=== PATIENT | female | born 1995 | race Caucasian/White ===

== ENCOUNTER 2016-12-03 04:57 | Inpatient (IN) | payer OTHER, SELFPAY ==
[2016-12-03] VITALS (28 sets, daily range): BP systolic 110–137; BP diastolic 62–89
[~2016-12-03] VITALS: Ht 162.6 cm; Wt 71.0 kg
[~2016-12-03 04:57] MED LIST: PRENTAB55 PO
[2016-12-03] MEDS ORDERED: LR 1,000 ML IV SCH ×2 (07:21→10:31)
[2016-12-03] MEDS ORDERED: LACTATED RINGER'S 1000 ML IV ONE (07:30)
--- NOTE | 2016-12-03 07:48 | HPE ---
DATE OF ADMISSION: 12/03/2016 21-year-old 1, para 0, LMP 07/22/2017, EDC 11/26/2016 at 41 weeks of gestation in spontaneous labor. She is booked for induction of labor today but came in in active labor. Labs are A negative, HIV negative, RPR negative, Hep negative, rubella immune. Varicella immune. Pap normal. Urine negative. Gonorrhea, chlamydia negative. 1-hour glucose 117. Group B Streptococcus (GBS) negative. Blood pressure 110/71, respirations 16, pulse 75, temperature is 99.1. Urine is 1.010, pH 5, negative, negative, negative. She seems to be in distress. Symphysis fundus height is 39. Category one strip, vertex OA 4-5 cm, bulging membranes with show, -1 station. The rest of the examination unremarkable. She is normocephalic, atraumatic. Neck: Full range of motion. Pupils equal and reactive to light. Distal pulses are symmetric. No evidence of DVT, PE or superficial phlebitis. No wheezes or rhonchi. No CVA tenderness. Four quadrant bowel sounds are noted. Appropriate symphysis fundus height. Category one strip, normocephalic, atraumatic. Neck: Full range of motions. Distal pulses symmetric. No wheezes or rhonchi. Chest is clear bilaterally to bases. No rashes, lesions, no pruritus. No arthralgia, myalgia. No complaints of cough, wheezes, shortness of breath or dyspnea on exertion. No chest pain. No bleeding. Neuro complete. No incontinence, urgency or frequency. No nausea, vomiting, diarrhea or constipation. She had an early elevated 1-hour glucose but her 28-week glucose was normal. In summary we have a post age gestation in active labor requiring hydration, monitoring and epidural. Anticipate vaginal delivery.
[2016-12-03] MEDS ORDERED: FENTANYL 2MCG/ML ROPIVACAINE 0.2% NACL 250 ML CADD As Ordered ONE (07:49)
[2016-12-03 08:12] LABS: MEAN CORPUSCULAR HEMOGLOBIN 30.1 pg (27.0-33.0); MEAN CORPUSCULAR HGB CONC 34.5 g/dl (32.0-36.5); MEAN CORPUSCULAR VOLUME 87.1 fl (80.0-96.0); RED CELL DISTRIBUTION WIDTH 13.3 % (11.5-14.5); WHITE BLOOD COUNT 9.3 K/mm3 (4.0-10.0)
[2016-12-03] MEDS: PRENATAL VITAMIN TAB PO SCH (09:00)
[2016-12-03] MEDS ORDERED: REFRIGERATOR IV KEYS XX PRN (10:00)
[2016-12-03] MEDS ORDERED: ONDANSETRON 4MG/2ML VIAL (J2405) IV PRN ×3 (10:00→13:15)
[2016-12-03] MEDS ORDERED: FENTANYL/ROPIVACAINE/NACL CADD 250 ML EPIDURAL SCH (10:00)
[2016-12-03] MEDS ORDERED: diphenhydrAMINE INJ 50MG/ML VIAL (J1200) IV PRN (10:00)
[2016-12-03] MEDS ORDERED: NALOXONE INJ 0.4 MG/1 ML VIAL (J2310) IV PRN ×3 (10:00→12:28)
[2016-12-03] MEDS ORDERED: EPIDURAL/PCA KEYS XX PRN (10:00)
[2016-12-03] MEDS ORDERED: EPIDURAL COMMENT XX SCH (10:00)
[2016-12-03] MEDS ORDERED: ePHEDrine SULFATE 25 MG/5 ML(5MG/ML) SYRINGE IV PRN (10:00)
[2016-12-03] MEDS ORDERED: OXYTOCIN DRIP 30 UNITS in APPROPRIATE DILUENT 1 EA IV SCH (10:45)
[2016-12-03] MEDS ORDERED: CLINDAMYCIN 900 MG/50 ML PREMIX BAG As Ordered ONE (11:47)
[2016-12-03] MEDS ORDERED: BICITRA 30ML SOLN UDC As Ordered ONE (11:48)
[2016-12-03] MEDS ORDERED: OXYTOCIN INJ 10 UNITS/ML VIAL (J2590) As Ordered ONE (11:53)
[2016-12-03] MEDS ORDERED: GENTAMICIN IV ONE ×2 (12:00→13:00)
[2016-12-03] MEDS ORDERED: CLINDAMYCIN 900 MG in APPROPRIATE DILUENT 1 EA IV ONE (12:00)
[2016-12-03] MEDS ORDERED: DILUENT IV ONE (12:00)
[2016-12-03] MEDS ORDERED: MORPHINE PRES-FREE INJ 10 MG/10 ML VIAL (J2274) As Ordered ONE (12:08)
[2016-12-03] MEDS ORDERED: METOCLOPRAMIDE INJ 10MG/2ML VIAL (J2765) IV PRN ×2 (12:28→13:15)
[2016-12-03] MEDS ORDERED: NALBUPHINE HCL 10 MG/ML AMP (J2300) IV PRN (12:28)
[2016-12-03] MEDS ORDERED: D5W IV ONE (13:00)
[2016-12-03 13:11] LABS: CORD GAS ABE V -2.9; CORD GAS HCO3 V 21.8 MEQ/L; CORD GAS O2 SAT V 82.5 %; CORD GAS PCO2 V 38.2 mmHg; CORD GAS PH V 7.375 UNITS; CORD GAS PO2 V 37.6 mmHg; CORD GAS SBC V 21.7 MEQ/L
[2016-12-03 13:13] LABS: CORD GAS ABE A -7.9; CORD GAS HCO3 A 19.9 MEQ/L; CORD GAS O2 SAT A 38.8 %; CORD GAS PCO2 A 48.7 mmHg; CORD GAS PH A 7.229 UNITS; CORD GAS PO2 A 20.5 mmHg; CORD GAS SBC A 16.9 MEQ/L; CORD GAS TCO2 A 21.4 MEQ/L
[2016-12-03] MEDS ORDERED: PROMETHAZINE 25 MG TAB PO PRN (13:15)
[2016-12-03] MEDS ORDERED: METHYLERGONOVINE MALEATE 0.2 MG TAB PO PRN (13:15)
[2016-12-03] MEDS ORDERED: MEASLES,MUMPS,RUBELLA VACCINE INJ (MMR-II) (90707) SC SCH (13:15)
[2016-12-03] MEDS ORDERED: ANUSOL HC CREAM 30GM TOP PRN (13:15)
[2016-12-03] MEDS ORDERED: DOCUSATE SODIUM 100 MG CAP PO PRN (13:15)
[2016-12-03] MEDS ORDERED: RHOGAM 300 MCG (1500 IU) INJ (J2790) IM SCH (13:15)
[2016-12-03] MEDS ORDERED: fentaNYL 100 MCG/2 ML INJECTION (J3010) IV PRN (14:00)
[2016-12-03] MEDS: KETOROLAC 30 MG/ML VIAL (J1885) IV SCH ×2 (14:11→21:17)
[2016-12-03] MEDS: LR 1,000 ML IV SCH ×2 (21:02→22:18)
[2016-12-03] MEDS: PERCOCET 5MG/325MG TAB PO PRN (22:07)
[2016-12-04 02:00] VITALS: BP 112/68
[2016-12-04] MEDS: KETOROLAC 30 MG/ML VIAL (J1885) IV SCH ×2 (02:31→08:21)
[2016-12-04 06:00] VITALS: BP 118/70
[2016-12-04 06:56] LABS: MEAN CORPUSCULAR HEMOGLOBIN 29.5 pg (27.0-33.0); MEAN CORPUSCULAR HGB CONC 33.9 g/dl (32.0-36.5); MEAN CORPUSCULAR VOLUME 87.1 fl (80.0-96.0); RED CELL DISTRIBUTION WIDTH 13.4 % (11.5-14.5); WHITE BLOOD COUNT 9.9 K/mm3 (4.0-10.0)
--- NOTE | 2016-12-04 08:47 | RO ---
DATE OF PROCEDURE: 12/03/2016 PREPROCEDURE DIAGNOSES: 1. Term . 2. Nonreassuring heart rate tracing. POSTPROCEDURE DIAGNOSES: 1. Term . 2. Nonreassuring heart rate tracing. 3. Nuchal cord, tight times one. PROCEDURE: Primary low transverse section. INDICATION FOR SURGERY: 21-year-old 1 that came in active labor at 41 weeks, who progressed to 6, complete and 0, underwent artificial rupture of membranes, and then noted prolonged deceleration down to 80 that lasted for 8 minutes, reevaluation demonstrated 8, complete, and 0 with return of baseline to 120; however, audibly noted deceleration again to the 80s. The patient and spouse reviewed risk, benefit, alternative, indication to delivery for concern for nonreassuring heart rate tracing. Patient and family agreed. SURGEON: Brennen Silva MD MOBILE ARCHITECT: ANESTHESIA: TELEVISION PICTURE TUBE REBUILDER, epidural. ESTIMATED BLOOD LOSS: 700 mL. URINE OUTPUT: 300 mL. IV FLUIDS: Approximately 2 liters of isotonic fluid. Again, the risks, benefits, alternatives, indications to section reviewed with the patient and the above consent was obtained. The patient was also verbally consented at the time for blood transfusion. DESCRIPTION OF PROCEDURE: The patient was taken to the operating room where epidural anesthesia was found to be adequate. A Rivero catheter had previously been placed. The patient was then prepped and draped in the normal sterile fashion. After a time out was performed, a low Pfannenstiel skin incision was performed and carried through to the underlying layer fascia with the assistance of Bovie cautery. The fascia was then incised in the midline, extended laterally with Chakraborty scissors. The superior and inferior aspect of the fascia were then bluntly dissected down. The rectus muscle was then in the midline. The peritoneum was entered digitally and extended horizontally and superiorly to get visualization of the bladder. The bladder blade was then introduced into the abdomen. The vesicouterine membrane was noted and picked up with forceps and entered sharply with Metzenbaum scissors and then extended laterally, creating a bladder flap. Next, the lower uterine segment was incised in a transverse fashion without complications. Amniotic sac was artificially ruptured at this level with Allis. Bladder blade was removed, and the infant was found to be deep in the pelvis in a cephalic presentation and was delivered without complications. The cord was doubly clamped and cut after nuchal, tight times one, was reduced, and the infant was handed off to the awaiting intensive care unit (NICU) team. Cord blood was then obtained for gases. Cord blood was also obtained in a routine fashion. Placenta was then removed with gentle traction on the umbilical cord without complication. The uterus was exteriorized and cleared of all clots and debris. The bladder blade was then reintroduced into the abdomen. Hysterotomy was visualized and closed in a running lock fashion with #0 Monocryl without complication. A second layer of #0 Monocryl for imbrication of the hysterotomy was performed without complication. After this, visualization of the hysterotomy that had been closed was performed for 30 seconds without bleeding noted. After this, a small amount of oozing was noted from the superior aspect of the hysterotomy. This was dealt with using a single figure of eight of #0 Vicryl without complication. Hemostasis was then demonstrated. Bilateral fallopian tubes and ovaries were noted to be normal in appearance. The posterior cul-de-sac was then irrigated with warm saline and the uterus was returned into the abdomen with careful reevaluation of the surgical site. This remained hemostatic without issues. The fascia was then reapproximated with #0 Vicryl in a running fashion. Subcutaneous layer closed with #3-0 Vicryl in a single interrupted fashion times three. The skin was closed with #4-0 Monocryl in a subcuticular fashion without complications. Pressure dressing was applied, however, prior to this happening, Steri-Strips were done in a perpendicular fashion without incident. At the completion of the case, bimanual examination was performed with good uterine tone and minimal vaginal bleeding noted. Due to allergy to KEFLEX, the patient received clindamycin in the operating room with gentamicin running at the completion of the case. The patient tolerated the procedure well. Sponge, lap, and needle counts were correct times three. The patient was taken to the recovery room in stable condition.
[2016-12-04] MEDS: PRENATAL VITAMIN TAB PO SCH (08:57)
[2016-12-04 10:00] VITALS: BP 113/66
[2016-12-04 14:28] VITALS: BP 138/87
[2016-12-04] MEDS: PERCOCET 5MG/325MG TAB PO PRN (14:40)
[2016-12-04] MEDS ORDERED: PERCOCET 5MG/325MG TAB PO PRN (15:15)
[2016-12-04] MEDS: CLINDAMYCIN 900 MG in APPROPRIATE DILUENT 1 EA IV SCH ×2 (15:56→23:51)
[2016-12-04] MEDS: GENTAMICIN 80 MG in APPROPRIATE DILUENT 1 EA IV SCH (17:11)
[2016-12-04] MEDS: IBUPROFEN 800 MG TAB PO PRN (17:12)
[2016-12-04 18:24] VITALS: BP 135/86
[2016-12-04 21:56] VITALS: BP 129/62
[2016-12-05] MEDS: GENTAMICIN 80 MG in APPROPRIATE DILUENT 1 EA IV SCH ×2 (00:56→09:38)
[2016-12-05] MEDS: IBUPROFEN 800 MG TAB PO PRN ×2 (01:16→14:24)
[2016-12-05] MEDS ORDERED: SIMETHICONE 80 MG CHEW TAB PO PRN (01:45)
[2016-12-05 02:35] VITALS: BP 130/72
[2016-12-05 05:37] VITALS: BP 133/69
[2016-12-05] MEDS: CLINDAMYCIN 900 MG in APPROPRIATE DILUENT 1 EA IV SCH (07:49)
[2016-12-05] MEDS: PRENATAL VITAMIN TAB PO SCH (07:49)
[2016-12-05 10:00] VITALS: BP 144/81
[2016-12-05 14:37] VITALS: BP 126/84
[2016-12-05 18:00] VITALS: BP 141/86
[2016-12-05] MEDS ORDERED: diphenhydrAMINE 50 MG CAP PO PRN (18:30)
[2016-12-06] MEDS: IBUPROFEN 800 MG TAB PO PRN (02:36)
[2016-12-06] MEDS: PRENATAL VITAMIN TAB PO SCH (08:26)
[2016-12-06 10:00] VITALS: BP 127/78
[2016-12-06] MEDS ORDERED: diphenhydrAMINE CREAM 30GM TOP PRN (13:45)
[2016-12-06 18:33] VITALS: BP 128/85
[2016-12-07 06:11] VITALS: BP 128/82
[2016-12-07] MEDS: PRENATAL VITAMIN TAB PO SCH (09:00)
[2016-12-07] MEDS ORDERED: IBUP-1114 PO (10:54)
[2016-12-07] MEDS ORDERED: OXYC1TAB23 PO (10:54)
[2016-12-07] MEDS ORDERED: COLA100C PO (10:54)
[2016-12-07] MEDS ORDERED: ANUS2.5C2 TOP (10:54)
[2016-12-07] MEDS ORDERED: BENA2CRE3 EXT (10:54)
== END 2016-12-07 11:20 | disposition home or self-care (01) | DRG 765 ==
LOC: M LDO 04:57 → M LDI 07:05 → M OBS 14:53
PROVIDERS: ADMIT Obstetrics & Gynecology; ATTEND Student in an Organized Health Care Education/Training Program
PROC: 10907ZC Drainage of Amniotic Fluid, Therapeutic from Products of Conception, Via Natural or Artificial Opening (ICD-10-PCS; 2016-12-03)
PROC: 10D00Z1 Extraction of Products of Conception, Low, Open Approach (ICD-10-PCS; principal; 2016-12-03 12:04)
DX: O48.0 Post-term pregnancy (principal); O86.4 Pyrexia of unknown origin following delivery; Z3A.41 41 weeks gestation of pregnancy; O76 Abnormality in fetal heart rate and rhythm complicating labor and delivery; O69.1XX0 Labor and delivery complicated by cord around neck, with compression, not applicable or unspecified; Z37.0 Single live birth

== ENCOUNTER 2018-02-24 07:59 | Inpatient (IN) | payer OTHER ==
[2018-02-24 12:19] LABS: HEMATOCRIT 34.6 % (36.0-47.0); HEMOGLOBIN 11.6 g/dl (12.0-15.5); MEAN CORPUSCULAR HGB CONC 33.5 g/dl (32.0-36.5); MEAN CORPUSCULAR VOLUME 86.5 fl (80.0-96.0); PLATELET COUNT, AUTOMATED 124 10^3/uL (150-450); RED CELL DISTRIBUTION WIDTH 12.8 % (11.5-14.5); WHITE BLOOD COUNT 7.7 10^3/uL (4.0-10.0)
[2018-02-24] MEDS: LACTATED RINGER'S 1000 ML IV (12:28)
[2018-02-24] MEDS: LR 1,000 ML IV ×2 (12:28→17:28)
[2018-02-24] MEDS ORDERED: FENTANYL 2MCG/ML ROPIVACAINE 0.2% IN 0.9% NACL 200ML IVBAG As Ordered (12:45)
[2018-02-24] MEDS: FENTANYL/ROPIVACAINE/NACL BAG 200 ML EPIDURAL (14:13)
[2018-02-24] MEDS ORDERED: REFRIGERATOR IV KEYS XX (14:15)
[2018-02-24] MEDS ORDERED: EPIDURAL/PCA KEYS XX (14:15)
[2018-02-24] MEDS ORDERED: NALOXONE INJ 0.4 MG/1 ML VIAL (J2310) IV (14:15)
[2018-02-24] MEDS ORDERED: diphenhydrAMINE INJ 50MG/ML VIAL (J1200) IV (14:15)
[2018-02-24] MEDS ORDERED: ePHEDrine SULFATE 25 MG/5 ML(5MG/ML) SYRINGE IV (14:15)
[2018-02-24] MEDS ORDERED: ONDANSETRON 4MG/2ML VIAL (J2405) IV (14:15)
[2018-02-24] MEDS ORDERED: EPIDURAL COMMENT XX (14:15)
[2018-02-24] MEDS ORDERED: OXYTOCIN 30 UNITS IN 0.9% NaCl 500ML IV BAG (J2590) As Ordered (17:46)
[2018-02-24] MEDS ORDERED: DIBUCAINE 1% OINTMENT 30GM TOP (21:00)
[2018-02-24] MEDS ORDERED: DOCUSATE SODIUM 100 MG CAP PO (21:00)
[2018-02-24] MEDS: IBUPROFEN 800 MG TAB PO (21:14)
[2018-02-25] MEDS: PRENATAL VITAMINS CHEWABLE TABLET PO (09:00)
[2018-02-25] MEDS: IBUPROFEN 800 MG TAB PO ×3 (10:43→20:04)
[2018-02-25] MEDS: MEASLES,MUMPS,RUBELLA VACCINE INJ (MMR-II) (90707) SC (11:36)
[2018-02-25] MEDS: ACETAMINOPHEN 500 MG TAB PO (17:15)
[2018-02-25] MEDS: OXYTOCIN DRIP 30 UNITS in APPROPRIATE DILUENT 1 EA IV (18:08)
[2018-02-25 19:49] LABS: FETAL SCREEN PROF. 1 1
[2018-02-25] MEDS: RHOGAM 300 MCG (1500 IU) INJ (J2790) IM (20:05)
[2018-02-26] MEDS: HYDROCORTISONE 1% CREAM 30 GM TOP (05:14)
[2018-02-26] MEDS: ACETAMINOPHEN 500 MG TAB PO (06:00)
[2018-02-26] MEDS: PRENATAL VITAMINS CHEWABLE TABLET PO (08:59)
[2018-02-26] MEDS: IBUPROFEN 800 MG TAB PO (09:00)
== END 2018-02-26 13:20 | disposition home or self-care (01) | DRG 775 ==
LOC: M LDO 07:59 → M OBS 02-25 01:50 → M LDI 11:37
PROC: 10E0XZZ Delivery of Products of Conception, External Approach (ICD-10-PCS; principal; 2018-02-24)
PROC: 0HQ9XZZ Repair Perineum Skin, External Approach (ICD-10-PCS; 2018-02-24)
PROC: 10907ZC Drainage of Amniotic Fluid, Therapeutic from Products of Conception, Via Natural or Artificial Opening (ICD-10-PCS; 2018-02-24)
PROC: 30233S1 Transfusion of Nonautologous Globulin into Peripheral Vein, Percutaneous Approach (ICD-10-PCS; 2018-02-25)
DX: O34.211 Maternal care for low transverse scar from previous cesarean delivery (principal); Z37.0 Single live birth; Z3A.39 39 weeks gestation of pregnancy; Z91.048 Other nonmedicinal substance allergy status; Z88.1 Allergy status to other antibiotic agents; O70.0 First degree perineal laceration during delivery; O77.0 Labor and delivery complicated by meconium in amniotic fluid; L23.1 Allergic contact dermatitis due to adhesives; O99.73 Diseases of the skin and subcutaneous tissue complicating the puerperium

== ENCOUNTER → 2018-06-02 | Outpatient (REF) | payer OTHER ==
[2018-06-02 15:01] LABS: APPEARANCE, URINE MANUAL HAZY (CLEAR); COLOR, URINE MANUAL ORANGE (YELLOW)
[2018-06-02 15:02] LABS: BILIRUBIN, URINE MANUAL OBSCURED (NEGATIVE); BLOOD URINE MANUAL OBSCURED (NEGATIVE); GLUCOSE, URINE (UA) MANUAL OBSCURED mg/dL (NEGATIVE); KETONE, URINE MANUAL OBSCURED mg/dL (NEGATIVE); LEUKOCYTE ESTERASE, URINE MAN OBSCURED (NEGATIVE); NITRITE, URINE MANUAL OBSCURED (NEGATIVE); PROTEIN, URINE MANUAL OBSCURED mg/dL (NEGATIVE); SPECIFIC GRAVITY,URINE MANUAL 1.025 (1.002-1.035); UROBILINOGEN, URINE MANUAL OBSCURED mg/dl (NORMAL)
[2018-06-02 15:18] LABS: MICROSCOPIC INDICATED? MAN YES (NO)
== END ==
LOC: M LAB REF 12:57
DX: N39.0 Urinary tract infection, site not specified (principal)

== ENCOUNTER → 2018-07-11 | Outpatient (REF) | payer OTHER ==
[2018-07-12 00:22] LABS: CHLAMYDIA DNA AMPLIFICATION NEGATIVE (NEGATIVE); GC DNA AMPLIFICATION NEGATIVE (NEGATIVE)
== END ==
LOC: M SFHCLERA 12:36
DX: R30.0 Dysuria (principal)